=== PATIENT | male | born 1975 | race Two or more races ===

== ENCOUNTER 2021-05-25 16:11 | Inpatient (IN) | payer MEDICAID, OTHER ==
[~2021-05-25] VITALS: Ht 170.2 cm; Wt 68.0 kg
[2021-05-25] MEDS: MORPHINE SULFATE INJECTION 2 MG/ML SYRG IV PRN ×2 (10:35→22:35)
[2021-05-25] MEDS ORDERED: HEPARIN SODIUM (PORCINE) 5000 UNITS/ML 1ML VIAL IV ONE (16:30)
[2021-05-25] MEDS ORDERED: MORPHINE SULFATE INJECTION 2 MG/ML SYRG IV ONE (16:30)
[2021-05-25] MEDS ORDERED: ONDANSETRON HCL 4 MG/2 ML VIAL ONE (16:30)
[2021-05-25] MEDS ORDERED: HEPARIN SODIUM (PORCINE) 5000 UNITS/ML 1ML VIAL ONE ×2 (16:30→17:27)
[2021-05-25] MEDS ORDERED: ONDANSETRON HCL 4 MG/2 ML VIAL IV ONE (16:30)
[2021-05-25] MEDS ORDERED: MORPHINE SULFATE INJECTION 2 MG/ML SYRG ONE (16:30)
[2021-05-25 16:45] LABS: Basophils # (auto) 0.1 10 ^3/uL (0-0.2); Basophils % (auto) 0.7 % (0.0-2.0); Eosinophils # (auto) 0.2 10 ^3/uL (0-0.8); Eosinophils % (auto) 1.2 % (0.0-7.0); Hematocrit 45.1 % (41.0-53.0); Hemoglobin 15.5 g/dL (13.5-17.5); Lymphocytes # (auto) 2.2 10 ^3/uL (0.4-5.4); Mean Corpuscular Hemoglobin 29.9 pg (28.0-32.0); Mean Corpuscular Hgb Conc. 34.5 g/dL (32.0-36.0); Mean Corpuscular Volume 86.7 fL (80.0-100.0); Monocytes % (auto) 5.3 % (0.0-12.0); Neutrophils # (auto) 15.1 10 ^3/uL (1.6-8.6); Neutrophils % (auto) 80.8 % (37.0-80.0); White Blood Cell 18.7 10^3/uL (4.4-10.8)
[2021-05-25] MEDS ORDERED: SODIUM CHLORIDE 0.9% 1,000 ML IV ONE (16:45)
[2021-05-25] MEDS ORDERED: fentaNYL CITRATE 100 MCG/2 ML VL ONE (16:51)
[2021-05-25] MEDS ORDERED: VERAPAMIL 2.5MG/ML INJ 2ML VIAL IV ONE (16:51)
[2021-05-25] MEDS ORDERED: MIDAZOLAM HCL 2MG/2ML 2ml VIAL (1mg/ml) ONE (16:51)
[2021-05-25] MEDS ORDERED: ANGIOMAX 250 MG VIAL IV ONE (16:51)
[2021-05-25] MEDS ORDERED: SODIUM CHL 0.9% 0 ML ONE (16:52)
[2021-05-25] MEDS ORDERED: LIDOCAINE 2%HCL (LOCAL ANESTH.) INJ 20ML MDV ONE (16:52)
[2021-05-25] MEDS ORDERED: NITROGLYCERIN 0.4 MG SL TAB SL PRN ×2 (17:00→18:00)
[2021-05-25] MEDS ORDERED: MORPHINE SULFATE 4 MG/ML SYR/VIAL IV PRN (17:00)
[2021-05-25 17:03] LABS: INR 1.04 (0.9-1.15); Partial Thromboplastin Time 23.2 sec (23.6-33.0)
[2021-05-25 17:07] LABS: Calcium 9.1 mg/dL (8.5-10.1); Potassium 3.6 mmol/L (3.5-5.1)
[2021-05-25 17:12] LABS: Bilirubin, Total 0.4 mg/dL (0.2-1.0); Total Protein 7.5 g/dL (6.4-8.2)
[2021-05-25] MEDS ORDERED: ATROPINE SULF 1 MG/10ml SYR ONE (17:16)
[2021-05-25] MEDS ORDERED: PHENYLEPHRINE HCL 10 MG/ML VL ONE (17:23)
[2021-05-25] MEDS ORDERED: CLOPIDOGREL 300 MG TAB ONE ×2 (17:37→17:47)
[2021-05-25] MEDS ORDERED: LORazepam 2MG/ML-1ML VIAL IV PRN (18:15)
[2021-05-25] MEDS ORDERED: NICOTINE 21MG/24 HR TOPICAL PATCH TD ONE (18:15)
[2021-05-25 19:04] VITALS: BP 147/87
[2021-05-25] MEDS ORDERED: INFLUENZA QUAD 2021-2022 0.5 ML SYRG IM ONE (21:15)
[2021-05-25] MEDS ORDERED: ASPI325T4 PO (21:16)
[2021-05-25] MEDS ORDERED: ATORVASTATIN 20 MG TAB PO SCH (22:00)
[2021-05-25] MEDS ORDERED: METOPROLOL TARTRATE 25 MG TAB PO SCH (22:00)
[2021-05-25] MEDS: CARVEDILOL 3.125 MG TAB PO SCH (23:59)
[2021-05-26 07:00] VITALS: BP 134/80
[2021-05-26 07:04] LABS: Chloride 107 mmol/L (98-107); Potassium 3.7 mmol/L (3.5-5.1); Sodium 135 mmol/L (136-145)
[2021-05-26 07:18] LABS: Alanine Aminotransferase 75 U/L (16-61); Albumin 3.4 g/dL (3.4-5.0); Alkaline Phosphatase 78 U/L (45-117); Anion Gap 5 (5-15); Aspartate Aminotransferase 399 U/L (15-37); Basophils # (auto) 0.1 10 ^3/uL (0-0.2); Basophils % (auto) 0.5 % (0.0-2.0); Bilirubin, Total 0.8 mg/dL (0.2-1.0); Blood Urea Nitrogen 8 mg/dL (7-18); Calcium 8.7 mg/dL (8.5-10.1); Carbon Dioxide 23 mmol/L (21-32); Eosinophils # (auto) 0.1 10 ^3/uL (0-0.8); Eosinophils % (auto) 0.6 % (0.0-7.0); GFR African American 133 mL/min; GFR Non-African American 110 mL/min; Glucose 122 mg/dL (74-106); Hemoglobin 14.3 g/dL (13.5-17.5); Lymphocytes # (auto) 1.9 10 ^3/uL (0.4-5.4); Lymphocytes % (auto) 16.9 % (10.0-50.0); Mean Corpuscular Hemoglobin 29.3 pg (28.0-32.0); Mean Corpuscular Volume 86.4 fL (80.0-100.0); Monocytes # (auto) 0.7 10 ^3/uL (0-1.3); Monocytes % (auto) 6.4 % (0.0-12.0); Neutrophils # (auto) 8.5 10 ^3/uL (1.6-8.6); Neutrophils % (auto) 75.6 % (37.0-80.0); Nucleated Red Blood Cells % 0.1 %; Red Blood Cells 4.86 10^6/uL (4.5-5.90); Red Cell Distribution Width 14.2 % (11.8-14.3); Total Protein 6.6 g/dL (6.4-8.2); White Blood Cell 11.3 10^3/uL (4.4-10.8)
[2021-05-26 09:00] VITALS: BP 119/81
[2021-05-26] MEDS: CARVEDILOL 3.125 MG TAB PO SCH (09:53)
[2021-05-26] MEDS ORDERED: CLOPIDOGREL BISULFATE 75 MG TAB PO SCH (10:00)
[2021-05-26] MEDS ORDERED: RANOLAZINE ER 500 MG TAB PO SCH (10:00)
[2021-05-26] MEDS ORDERED: LISINOPRIL 5 MG TAB PO SCH (10:00)
[2021-05-26] MEDS ORDERED: NICOTINE 21MG/24 HR TOPICAL PATCH TD SCH (10:00)
[2021-05-26] MEDS ORDERED: ASPirin 81 mg TAB PO SCH (10:00)
[2021-05-26] MEDS ORDERED: CLOP75TA28 PO (11:57)
[2021-05-26] MEDS ORDERED: CAR3125T PO (11:57)
[2021-05-26] MEDS ORDERED: ATOR20TA50 PO (11:57)
[2021-05-26] MEDS ORDERED: ASPI1CHW15 PO (11:57)
[2021-05-26] MEDS ORDERED: RANO500T PO (11:57)
[2021-05-26] MEDS ORDERED: LISI-275 PO (11:57)
[2021-05-26 13:00] VITALS: BP 140/98
[2021-05-26 14:34] VITALS: BP 140/98
[2021-05-26 17:04] VITALS: BP 140/101
[2021-05-26] MEDS ORDERED: PANTOPRAZOLE 40 MG TAB PO ONE (17:30)
[2021-05-27] MEDS ORDERED: PANTOPRAZOLE 40 MG TAB PO SCH (10:00)
== END 2021-05-26 17:55 | disposition home or self-care (01) | DRG 175 ==
LOC: ER 16:17 → TELE-WESTW 17:58
PROVIDERS: ADMIT Internal Medicine; ATTEND Internal Medicine
PROC: B2111ZZ Fluoroscopy of Multiple Coronary Arteries using Low Osmolar Contrast (ICD-10-PCS; principal; 2021-05-25)
PROC: 027135Z Dilation of Coronary Artery, Two Arteries with Two Drug-eluting Intraluminal Devices, Percutaneous Approach (ICD-10-PCS; 2021-05-25)
PROC: 4A023N7 Measurement of Cardiac Sampling and Pressure, Left Heart, Percutaneous Approach (ICD-10-PCS; 2021-05-25)
PROC: B2151ZZ Fluoroscopy of Left Heart using Low Osmolar Contrast (ICD-10-PCS; 2021-05-25)
DX: T82.855A Stenosis of coronary artery stent, initial encounter (principal); I21.3 ST elevation (STEMI) myocardial infarction of unspecified site; R65.10 Systemic inflammatory response syndrome (SIRS) of non-infectious origin without acute organ dysfunction; F41.9 Anxiety disorder, unspecified; I25.10 Atherosclerotic heart disease of native coronary artery without angina pectoris; Z20.822 Contact with and (suspected) exposure to COVID-19; F12.90 Cannabis use, unspecified, uncomplicated; I10 Essential (primary) hypertension; Y83.1 Surgical operation with implant of artificial internal device as the cause of abnormal reaction of the patient, or of later complication, without mention of misadventure at the time of the procedure; Y92.89 Other specified places as the place of occurrence of the external cause; Z91.19 Patient's noncompliance with other medical treatment and regimen; Z59.00 Homelessness unspecified; Z79.02 Long term (current) use of antithrombotics/antiplatelets; Z79.899 Other long term (current) drug therapy; Z72.0 Tobacco use; Z71.6 Tobacco abuse counseling
CPT/HCPCS: 36415; 71045; 80053; 80061; 83036; 83735; 83880; 84443; 84484; 85025; 85610; 85730; 87426; 92928; 93005; 93306; 93458; 96361; 96374; 96375; G0378; J2250; J2405

== ENCOUNTER 2021-10-30 08:47 | Emergency (ER) | payer MEDICAID ==
[~2021-10-30 08:47] MED LIST: ASPI1CHW15 PO; ASPI325T4 PO; ATOR20TA50 PO; CAR3125T PO; CLOP75TA28 PO; LISI-275 PO; RANO500T PO
[2021-10-30 09:58] LABS: Albumin 4.3 g/dL (3.4-5.0); Calcium 9.7 mg/dL (8.5-10.1)
[2021-10-30 10:01] LABS: BUN/Creatinine Ratio 7.5; Bilirubin, Total 1.5 mg/dL (0.2-1.0); Total Protein 8.3 g/dL (6.4-8.2)
[2021-10-30 10:08] LABS: Potassium 2.9 mmol/L (3.5-5.1)
[2021-10-30 10:38] LABS: Basophils # (auto) 0.1 10 ^3/uL (0-0.2); Basophils % (auto) 0.4 % (0.0-2.0); Eosinophils # (auto) 0 10 ^3/uL (0-0.8); Eosinophils % (auto) 0.3 % (0.0-7.0); Hematocrit 49.5 % (41.0-53.0); Hemoglobin 17.4 g/dL (13.5-17.5); Lymphocytes # (auto) 3.6 10 ^3/uL (0.4-5.4); Mean Corpuscular Volume 85.6 fL (80.0-100.0); Monocytes # (auto) 1.4 10 ^3/uL (0-1.3); Monocytes % (auto) 9.6 % (0.0-12.0); Neutrophils # (auto) 9.3 10 ^3/uL (1.6-8.6); Neutrophils % (auto) 64.7 % (37.0-80.0); Nucleated Red Blood Cells % 0.1 %; Red Blood Cells 5.78 10^6/uL (4.5-5.90); Red Cell Distribution Width 13.8 % (11.8-14.3); White Blood Cell 14.3 10^3/uL (4.4-10.8)
[2021-10-30] MEDS ORDERED: POTASSIUM EFFERVESENT TAB 25 MEQ PO ONE (11:00)
[2021-10-30] MEDS ORDERED: CEPH-509 PO (13:02)
[2021-10-30] MEDS ORDERED: METR500T PO (13:02)
[2021-10-30 13:55] VITALS: BP 116/65
== END 2021-10-30 14:22 | disposition home or self-care (01) ==
LOC: ER 08:47
DX: K52.9 Noninfective gastroenteritis and colitis, unspecified (principal); E86.0 Dehydration; E87.6 Hypokalemia; Z79.899 Other long term (current) drug therapy; I10 Essential (primary) hypertension; I25.2 Old myocardial infarction; F17.210 Nicotine dependence, cigarettes, uncomplicated; Z79.82 Long term (current) use of aspirin; R07.89 Other chest pain; Z20.822 Contact with and (suspected) exposure to COVID-19
CPT/HCPCS: 36415; 71045; 80053; 83880; 84484; 85025; 93005

== ENCOUNTER 2021-11-01 12:22 | Inpatient (IN) | payer MEDICAID ==
[~2021-11-01] VITALS: Ht 170.2 cm; Wt 73.5 kg
[~2021-11-01 12:22] MED LIST changes: +CEPH-509 PO; +METR500T PO
[2021-11-01] MEDS ORDERED: SODIUM CHLORIDE 0.9% 1,000 ML IV ONE ×2 (13:00→15:30)
[2021-11-01] MEDS ORDERED: SODIUM CHLORIDE 0.9% 1,000 ML IVB ONE (13:00)
[2021-11-01] MEDS ORDERED: ONDANSETRON HCL 4 MG/2 ML VIAL IV ONE (13:00)
[2021-11-01 13:24] LABS: Albumin 3.9 g/dL (3.4-5.0); Calcium 8.7 mg/dL (8.5-10.1)
[2021-11-01 13:29] LABS: BUN/Creatinine Ratio 22.2; Bilirubin, Total 1.9 mg/dL (0.2-1.0); Total Protein 7.3 g/dL (6.4-8.2)
[2021-11-01 13:34] LABS: Potassium 2.4 mmol/L (3.5-5.1)
[2021-11-01] MEDS ORDERED: POTASSIUM CHL 20 Meq TABLET PO ONE (14:00)
[2021-11-01] MEDS ORDERED: D5W/SOD CHL 0.45%/KCL 20MEQ 1,000 ML IV ONE (14:30)
[2021-11-01 14:41] LABS: Basophils # (auto) 0 10 ^3/uL (0-0.2); Basophils % (auto) 0.2 % (0.0-2.0); Eosinophils # (auto) 0 10 ^3/uL (0-0.8); Eosinophils % (auto) 0.3 % (0.0-7.0); Hematocrit 46.6 % (41.0-53.0); Lymphocytes # (auto) 2.5 10 ^3/uL (0.4-5.4); Lymphocytes % (auto) 20.5 % (10.0-50.0); Mean Corpuscular Hgb Conc. 35.6 g/dL (32.0-36.0); Mean Corpuscular Volume 84.3 fL (80.0-100.0); Monocytes # (auto) 1.4 10 ^3/uL (0-1.3); Monocytes % (auto) 11.2 % (0.0-12.0); Neutrophils # (auto) 8.4 10 ^3/uL (1.6-8.6); Neutrophils % (auto) 67.8 % (37.0-80.0); Nucleated Red Blood Cells % 0.2 %; Red Blood Cells 5.52 10^6/uL (4.5-5.90); Red Cell Distribution Width 13.7 % (11.8-14.3); White Blood Cell 12.4 10^3/uL (4.4-10.8)
[2021-11-01 14:44] LABS: Hemoglobin 16.6 g/dL (13.5-17.5)
[2021-11-01] MEDS ORDERED: D5W/SOD CHL 0.9%/KCL 40MEQ 1,000 ML IV ONE (15:30)
[2021-11-01 16:08] LABS: Creatinine, Urine 67 mg/dL (30.0-125.0); Sodium Urine 10 mmol/L (40-220)
[2021-11-01] MEDS ORDERED: HEPARIN SODIUM (PORCINE) 5000 UNITS/ML 1ML VIAL SC SCH (16:30)
[2021-11-01] MEDS ORDERED: HYDROmorphone HCL 2 MG/ML VL/or syr IV PRN (16:30)
[2021-11-01] MEDS ORDERED: HYDROcodone-ACET 5/325MG TAB PO PRN (16:30)
[2021-11-01] MEDS ORDERED: DOCUSATE SOD 100 MG CAP PO PRN (16:30)
[2021-11-01] MEDS ORDERED: ACETAMINOPHEN 325 MG TAB PO PRN (16:30)
[2021-11-01] MEDS ORDERED: ONDANSETRON HCL 4 MG/2 ML VIAL IV PRN (16:30)
[2021-11-01] MEDS: HEPARIN SODIUM (PORCINE) 5000 UNITS/ML 1ML VIAL SC SCH (18:02)
[2021-11-01 18:10] LABS: Folate (Folic Acid) 10.41 ng/mL (5.38-24)
[2021-11-01 19:00] LABS: BUN/Creatinine Ratio 25.4; Calcium 7.7 mg/dL (8.5-10.1); Calcium 7.9 mg/dL (8.5-10.1); Potassium 3.1 mmol/L (3.5-5.1)
[2021-11-01 19:03] LABS: BUN/Creatinine Ratio 23.5; Bilirubin, Direct 0.5 mg/dL (0-0.2); Bilirubin, Total 1.4 mg/dL (0.2-1.0); CRP High Sensitivity 0.14 mg/dL (< 0.3)
[2021-11-01 19:07] VITALS: BP 103/68
[2021-11-01 19:10] LABS: Potassium 2.9 mmol/L (3.5-5.1)
[2021-11-01] MEDS: SODIUM CHLOR 0.9% PF (SALINE LOCK) 10ML VIAL/SYR IV SCH (21:27)
[2021-11-01] MEDS: RANOLAZINE ER 500 MG TAB PO SCH (21:28)
[2021-11-01] MEDS: ATORVASTATIN 20 MG TAB PO SCH (21:28)
[2021-11-01] MEDS: CARVEDILOL 3.125 MG TAB PO SCH (21:28)
[2021-11-01 22:00] VITALS: BP 93/48
[2021-11-02] MEDS: HEPARIN SODIUM (PORCINE) 5000 UNITS/ML 1ML VIAL SC SCH ×3 (00:39→16:03)
[2021-11-02 01:36] LABS: BUN/Creatinine Ratio 24.8; Calcium 7.6 mg/dL (8.5-10.1); Potassium 3.2 mmol/L (3.5-5.1)
[2021-11-02 05:00] VITALS: BP 107/66
[2021-11-02 05:31] LABS: Potassium 3.4 mmol/L (3.5-5.1)
[2021-11-02] MEDS: SODIUM CHLOR 0.9% PF (SALINE LOCK) 10ML VIAL/SYR IV SCH ×3 (06:51→21:40)
[2021-11-02 09:00] VITALS: BP 97/62
[2021-11-02] MEDS: ASPirin 81 mg TAB PO SCH (09:00)
[2021-11-02] MEDS: CLOPIDOGREL BISULFATE 75 MG TAB PO SCH (09:00)
[2021-11-02] MEDS: PANTOPRAZOLE 40 MG/10 ML VIAL INJ IV SCH (09:00)
[2021-11-02] MEDS: CARVEDILOL 3.125 MG TAB PO SCH ×2 (09:01→21:43)
[2021-11-02] MEDS: RANOLAZINE ER 500 MG TAB PO SCH ×2 (09:01→21:40)
[2021-11-02 12:14] LABS: Calcium 8.5 mg/dL (8.5-10.1); Potassium 4.2 mmol/L (3.5-5.1)
[2021-11-02 12:16] LABS: BUN/Creatinine Ratio 13.3
[2021-11-02 13:00] VITALS: BP 103/64
[2021-11-02 17:00] VITALS: BP 103/63
[2021-11-02 18:30] LABS: BUN/Creatinine Ratio 14.3; Calcium 7.8 mg/dL (8.5-10.1)
[2021-11-02] MEDS: ATORVASTATIN 20 MG TAB PO SCH (21:40)
[2021-11-02 22:00] VITALS: BP 153/86
[2021-11-03] MEDS: HEPARIN SODIUM (PORCINE) 5000 UNITS/ML 1ML VIAL SC SCH ×2 (01:22→09:11)
[2021-11-03 05:00] VITALS: BP 111/62
[2021-11-03] MEDS: SODIUM CHLOR 0.9% PF (SALINE LOCK) 10ML VIAL/SYR IV SCH (05:18)
[2021-11-03 06:11] LABS: Basophils # (auto) 0 10 ^3/uL (0-0.2); Basophils % (auto) 0.6 % (0.0-2.0); Eosinophils # (auto) 0.1 10 ^3/uL (0-0.8); Eosinophils % (auto) 1.7 % (0.0-7.0); Hematocrit 39.1 % (41.0-53.0); Hemoglobin 13.9 g/dL (13.5-17.5); Lymphocytes # (auto) 3.8 10 ^3/uL (0.4-5.4); Lymphocytes % (auto) 49.2 % (10.0-50.0); Mean Corpuscular Hemoglobin 30.4 pg (28.0-32.0); Mean Corpuscular Hgb Conc. 35.6 g/dL (32.0-36.0); Mean Corpuscular Volume 85.4 fL (80.0-100.0); Monocytes # (auto) 0.8 10 ^3/uL (0-1.3); Monocytes % (auto) 10.2 % (0.0-12.0); Neutrophils % (auto) 38.3 % (37.0-80.0); Nucleated Red Blood Cells % 0.1 %; Red Blood Cells 4.58 10^6/uL (4.5-5.90); Red Cell Distribution Width 13.9 % (11.8-14.3); White Blood Cell 7.8 10^3/uL (4.4-10.8)
[2021-11-03 06:32] LABS: BUN/Creatinine Ratio 15.6; Calcium 8.4 mg/dL (8.5-10.1); Magnesium 2.1 mg/dL (1.6-2.6); Potassium 3.3 mmol/L (3.5-5.1)
[2021-11-03 09:01] VITALS: BP 105/71
[2021-11-03] MEDS: ASPirin 81 mg TAB PO SCH (09:11)
[2021-11-03] MEDS: PANTOPRAZOLE 40 MG/10 ML VIAL INJ IV SCH (09:11)
[2021-11-03] MEDS: CLOPIDOGREL BISULFATE 75 MG TAB PO SCH (09:12)
[2021-11-03] MEDS: CARVEDILOL 3.125 MG TAB PO SCH (09:12)
[2021-11-03] MEDS: RANOLAZINE ER 500 MG TAB PO SCH (09:12)
[2021-11-03 13:00] VITALS: BP 115/71
[2021-11-03 14:18] VITALS: BP 105/71
== END 2021-11-03 15:15 | disposition home or self-care (01) | DRG 426 ==
LOC: ER 12:22 → TELE 16:28 → TELE-EAST 18:48
PROVIDERS: ADMIT Internal Medicine; ATTEND Internal Medicine
DX: E87.1 Hypo-osmolality and hyponatremia (principal); N17.0 Acute kidney failure with tubular necrosis; E87.8 Other disorders of electrolyte and fluid balance, not elsewhere classified; E86.0 Dehydration; D72.829 Elevated white blood cell count, unspecified; E87.6 Hypokalemia; F17.210 Nicotine dependence, cigarettes, uncomplicated; R74.8 Abnormal levels of other serum enzymes; Z20.822 Contact with and (suspected) exposure to COVID-19; I10 Essential (primary) hypertension; I25.10 Atherosclerotic heart disease of native coronary artery without angina pectoris; Z59.00 Homelessness unspecified; Z80.0 Family history of malignant neoplasm of digestive organs; Z80.1 Family history of malignant neoplasm of trachea, bronchus and lung; Z82.49 Family history of ischemic heart disease and other diseases of the circulatory system; Z98.61 Coronary angioplasty status; I25.2 Old myocardial infarction
CPT/HCPCS: 36415; 74176; 76700; 80048; 80053; 80320; 82150; 82247; 82248; 82570; 82607; 82746; 83605; 83690; 83735; 83930; 83935; 84300; 84425; 84443; 84484; 85025; 85652; 86141; 87081; 93005; 96361; 96374; 97163; 99291; C9113; G0378; J2405